=== PATIENT | male | born 1970 | race Caucasian/White ===

== ENCOUNTER 2018-11-12 21:41 | Emergency (ER) | payer OTHER ==
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
[2018-11-12] MEDS ORDERED: Lidocaine 1% 5ml 10 MG/ML VIAL IJ ONE (22:31)
[2018-11-12 23:11] VITALS: BP 123/84
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
== END 2018-11-12 23:01 | disposition home or self-care (01) ==
LOC: ED 21:41
DX: S02.119A Unspecified fracture of occiput, initial encounter for closed fracture (principal); S01.81XA Laceration without foreign body of other part of head, initial encounter; Y09 Assault by unspecified means
CPT/HCPCS: 12011; 70450; 70486; 99282; 99283